=== PATIENT | female | born 1970 | race Caucasian/White ===

== ENCOUNTER → 2020-10-11 08:26 | Outpatient (BNVA) | payer OTHER, SELFPAY | PROVIDERS: PCP Family Medicine; Visit Provider Surgery | DX: Z76.89 Persons encountering health services in other specified circumstances (principal) ==

== ENCOUNTER → 2020-11-21 07:48 | Outpatient (BNVA) | payer OTHER, SELFPAY | PROVIDERS: PCP Family Medicine; Visit Provider Surgery ==

== ENCOUNTER → 2020-12-07 08:26 | Outpatient (BNVA) | payer OTHER, SELFPAY | PROVIDERS: PCP Family Medicine; Visit Provider Surgery ==

== ENCOUNTER → 2020-12-13 08:13 | Outpatient (REF) | payer OTHER, SELFPAY ==
--- NOTE | ~2020-12-13 | FL_ITS ---
EXAMINATION: FL UPPER GI SERIES CLINICAL INFORMATION: Bariatric service evaluation. E66.9 COMPARISON: None TECHNIQUE: Upper GI series is performed using fluoroscopic evaluation in addition to multiple fluoroscopic spot views. The patient is imaged both upright and prone and using both thick and thin barium sulfate along with effervescent granules. Fluoroscopy time: 0.9 minutes DAP: 20.43 Gycm2 Fluoroscopic spot images: 18 FINDINGS: There is normal esophageal motility. There is no obstruction, stricture, or ulceration. There is intermittent small sliding hiatal hernia seen during prior Valsalva maneuver with herniation by approximately 1.25 thoracic vertebral height in size. There is mild gastroesophageal reflux to the midthoracic esophagus during the water siphon test. The stomach shows no thickened folds or ulcer crater or outlet obstruction. The duodenal bulb is pliable and without ulcer crater or scarring. The post bulbar duodenum the jejunal mucosal pattern are unremarkable. FL/FL upper GI series IMPRESSION: 1. Small intermittent sliding hiatal hernia during prone Valsalva maneuver. 2. Gastroesophageal reflux to mid thoracic esophagus during the water siphon test. 3. Otherwise normal study. No ulceration.
--- NOTE | ~2020-12-13 | US_ITS ---
EXAMINATION: XR CHEST US ABDOMEN COMPLETE WITH ELASTOGRAPHY CLINICAL INFORMATION: Obesity. COMPARISON: None TECHNIQUE: Chest 2 views. Routine abdomen ultrasound was performed with elastography of liver. FINDINGS: CHEST: The lungs are well-expanded and clear. The heart size and pulmonary vascularity are normal. No gross bony abnormality seen. ULTRASOUND ABDOMEN: The pancreas is homogeneous in echotexture, normal size and shape. The abdominal aorta is normal course and caliber. Liver: The liver is normal in size, shape with increased echogenicity. The right hepatic lobe measures 19.0 cm in length and left hepatic lobe measures 12.5 cm in length. There is normal hepatopedal flow seen and portal vein on Doppler exam. On elastography, the median stiffness is 1.11. IQR/Median is 0.15. The gallbladder has been removed. The common bile duct measures 0.9 cm. The right kidney measures 12.6 cm. There is normal cortical thickness. No focal lesion, echogenic calculi or hydronephrosis. The left kidney measures 12.5 cm. There is normal cortical thickness. No focal lesion, echogenic calculi or hydronephrosis seen. The spleen measures 9.5 cm and appears unremarkable. US/US abdomen comp w elastography IMPRESSION: Hepatic steatosis without focal lesion. Rest of the abdominal ultrasound is unremarkable. On elastography, the liver stiffness is 1.11 and normal. Unremarkable chest exam.
--- NOTE | 2020-12-13 08:32 | ECG_ITS ---
Test Reason : E66.9 OBESITY Blood Pressure : / mmHG Vent. Rate : 080 BPM Atrial Rate : 080 BPM P-R Int : 174 ms QRS Dur : 080 ms QT Int : 388 ms P-R-T Axes : 062 022 023 degrees QTc Int : 447 ms Normal sinus rhythm Normal ECG No previous ECGs available Referred By: Prakash Horne Electronically Signed By:RYANN SANTANA
[2020-12-13 09:23] LABS: MANUAL DIFF FLAG NO
[2020-12-13 09:30] LABS: Basophils Absolute Auto 0.1 X10*3/uL (0.0-0.2); Basophils Percent Auto 0.9 % (0-2); Eosinophils Absolute Auto 0.1 X10*3/uL (0.0-0.4); Hematocrit 36.5 % (37-47); Hemoglobin 12.9 g/dl (12.0-16.0); Imm Gran Abs Auto 0.02 X10*3/uL (0.00-0.03); Imm Gran Pct Auto 0.4 % (0.0-0.4); Lymphocytes Absolute Auto 1.9 X10*3/uL (1.2-4.9); Lymphocytes Percent Auto 33.5 % (20-40); Mean Corpuscular HGB Conc 35.3 g/dl (31.0-35.0); Mean Corpuscular Hemoglobin 32.6 pg (27.0-33.0); Mean Corpuscular Volume 92.2 fL (80-98); Mean Platelet Volume 9.9 fL (9.4-12.3); Monocytes Absolute Auto 0.5 X10*3/uL (0.1-1.2); Monocytes Percent Auto 9.3 % (2-11); Neutrophils Percent Auto 53.9 % (45-73); Platelet Count 326 X10*3/uL (160-400); Red Blood Count 3.96 X10*6/uL (4.20-5.50); Red Cell Distribution Width 11.7 % (11.0-16.0); White Blood Count 5.6 X10*3/uL (4.8-10.8)
[2020-12-13 09:42] LABS: Estimated Average Glucose 103 mg/dL; Hemoglobin A1c % 5.2 %
[2020-12-13 10:46] LABS: Folate 5.9 ng/mL (> or = 4.0); Vitamin B12 509 pg/mL (200-900)
[2020-12-13 13:16] LABS: Alanine Aminotransferase 30 U/L (0-31); Albumin Level 4.1 g/dL (3.5-5.0); Alkaline Phosphatase 85 U/L (39-117); Anion Gap 16 (12-20); Aspartate Amino Transferase 18 U/L (5-31); Bilirubin Total 0.6 mg/dL (0.0-1.0); Blood Urea Nitrogen 9 mg/dL (9-16); C Reactive Protein 0.68 mg/dL (< or = 0.50); Calcium 8.8 mg/dL (8.4-10.2); Carbon Dioxide 24 mmol/L (22-29); Chloride 103 mmol/L (96-108); Cholesterol 175 mg/dL; Estimated Glomerular Filt Rate > 60; Glucose Random 101 mg/dL (60-115); HDL Cholesterol 48 mg/dL; LDL Cholesterol Calculated 83 mg/dl; Potassium 4.4 mmol/L (3.3-5.1); Sodium 139 mmol/L (135-145); Total Protein 6.7 g/dL (6.5-8.0); Triglycerides 224 mg/dL
[2020-12-13 13:36] LABS: Ferritin 57 ng/mL (10-250); TSH reflex Free T4 1.79 uIU/mL (0.32-4.0); Vitamin D 25-OH Total 11.2 ng/mL (>30)
[2020-12-14 05:32] LABS: Insulin Level Total 10.7 uIU/mL
[2020-12-15 16:32] LABS: Zinc 69 mcg/dL (60-130)
[2020-12-17 04:42] LABS: Vitamin A 40 mcg/dL (38-98)
[2020-12-17 12:11] LABS: Vitamin B1 9 nmol/L (8-30)
[2020-12-17 13:47] LABS: Calcium (PTHI) 8.9 mg/dL (8.6-10.2); PTHI 86 pg/mL (14-64)
== END ==
LOC: HO.SL 08:13
PROVIDERS: Visit Provider Surgery
DX: Z01.818 Encounter for other preprocedural examination (principal); G47.19 Other hypersomnia; E66.01 Morbid (severe) obesity due to excess calories; K21.9 Gastro-esophageal reflux disease without esophagitis; E66.9 Obesity, unspecified; Z68.38 Body mass index [BMI] 38.0-38.9, adult; R06.83 Snoring
CPT/HCPCS: 36415; 71046; 74240; 76705; 76981; 80053; 80061; 82306; 82607; 82728; 82746; 83036; 83525; 83970; 84425; 84443; 84590; 84630; 85025; 86140; 93005; 95806

== ENCOUNTER → 2020-12-14 08:07 | Outpatient (BNVA) | payer OTHER, SELFPAY | PROVIDERS: PCP Family Medicine; Visit Provider Dietitian, Registered | DX: E66.01 Morbid (severe) obesity due to excess calories (principal) ==

== ENCOUNTER → 2020-12-14 08:07 | Outpatient (BNVA) | payer OTHER, SELFPAY | PROVIDERS: PCP Family Medicine; Visit Provider Dietitian, Registered ==

== ENCOUNTER → 2021-01-10 08:11 | Outpatient (BNVA) | payer OTHER, SELFPAY | PROVIDERS: PCP Family Medicine; Visit Provider Dietitian, Registered ==

== ENCOUNTER → 2021-01-11 08:10 | Outpatient (BNVA) | payer OTHER, SELFPAY | PROVIDERS: PCP Family Medicine; Visit Provider Dietitian, Registered | DX: E66.9 Obesity, unspecified (principal) | CPT/HCPCS: 97803 ==

== ENCOUNTER → 2021-01-21 08:12 | Outpatient (BNVA) | payer OTHER, SELFPAY | PROVIDERS: PCP Family Medicine; Visit Provider Surgery ==

== ENCOUNTER → 2021-02-07 08:14 | Outpatient (BNVA) | payer OTHER, SELFPAY | PROVIDERS: PCP Family Medicine; Visit Provider Dietitian, Registered | DX: E66.01 Morbid (severe) obesity due to excess calories (principal); Z68.39 Body mass index [BMI] 39.0-39.9, adult | CPT/HCPCS: 97803 ==

== ENCOUNTER → 2021-02-15 07:21 | Outpatient (BNVA) | payer OTHER, SELFPAY | PROVIDERS: PCP Family Medicine; Visit Provider Surgery ==

== ENCOUNTER → 2021-03-08 07:12 | Outpatient (BNVA) | payer OTHER, SELFPAY | PROVIDERS: Visit Provider Surgery ==

== ENCOUNTER 2021-03-12 08:43 | Day surgery (SDC) | payer OTHER, SELFPAY ==
[2021-03-04 16:18] VITALS: BMI 38.9
--- NOTE | 2021-03-08 08:30 | HO.ANESPROP2 ---
Documented by User: Ivonneher Dominguezney 03/08/21 09:14 HPI - Anesthesia Eval Consult details Narrative: 50yo F for Upper Endoscopy PMFSH Active Problems Active Problems: All Active Problems (Updated 03/04/21 @ 16:24 by Jazz Leiva) Cerebral edema (Acute) Constipation (Acute) BMI 39.0-39.9,adult (Acute) Morbid obesity (Acute) Anxiety (Acute) GERD (gastroesophageal reflux disease) (Acute) Hypersomnolence (Acute) Snoring (Acute) Asthma (Acute) BMI 38.0-38.9,adult (Acute) Obesity (Acute) Past Medical History Medical History Anxiety Arthritis Asthma Back pain BMI 38.0-38.9,adult GERD (gastroesophageal reflux disease) Hypersomnolence Menorrhagia Morbid obesity Obesity Occipital neuralgia Snoring Family History Family History Mother Stroke Hypertension Diabetes Father Diabetes Brother No problems noted. Brother No problems noted. Sister Diabetes Sister No problems noted. Sister No problems noted. Brother Bipolar 1 disorder Son No problems noted. Son No problems noted. Surgical History Surgical History History of carpal tunnel surgery History of esophagogastroduodenoscopy (EGD) History of sleeve gastrectomy Hx of cholecystectomy Hx of tubal ligation Social History Social History Use of substances other than those prescribed or required for medical reasons: No Are you DNR?: No Advance Directives: No Advance Directives Information Provided: No Advance Directives on File: No Patient : No FDLMP: 02/24/2021 Meds Allergies Allergy/AdvReac Type Severity Reaction Status Date / Time No Known Allergies Allergy Verified 03/04/21 16:16 Home Medications Medication Instructions Recorded Confirmed Last Taken Type amitriptyline 20 mg PO DAILY 03/04/21 03/04/21 Unknown History docusate sodium [Colace] 100 mg PO DAILY PRN 03/04/21 03/04/21 Unknown History Exam Exam Date and Time: March 08, 2021 0830 Height,Weight and Vital Signs: Height 5 ft 4 in Weight 102.965 kg Narrative Narrative: EKG 02/2021 Vent. Rate : 080 BPM Atrial Rate : 080 BPM P-R Int : 174 ms QRS Dur : 080 ms QT Int : 388 ms P-R-T Axes : 062 022 023 degrees QTc Int : 447 ms Normal sinus rhythm Normal ECG No previous ECGs available Assessment and Plan Assessment Anesthesia Assessment: Chart Reviewed Documented by User: Tommy Rivers MD 03/12/21 10:51 [facility] Past Medical History Medical History Anxiety Arthritis Asthma Back pain BMI 38.0-38.9,adult GERD (gastroesophageal reflux disease) Hypersomnolence Menorrhagia Morbid obesity Obesity Occipital neuralgia Snoring Family History Family History Mother Stroke Hypertension Diabetes Father Diabetes Brother No problems noted. Brother No problems noted. Sister Diabetes Sister No problems noted. Sister No problems noted. Brother Bipolar 1 disorder Son No problems noted. Son No problems noted. Surgical History Surgical History History of carpal tunnel surgery History of esophagogastroduodenoscopy (EGD) History of sleeve gastrectomy Hx of cholecystectomy Hx of tubal ligation Social History Social History Use of substances other than those prescribed or required for medical reasons: No Are you DNR?: No Advance Directives: No Advance Directives Information Provided: No Advance Directives on File: No Patient : No FDLMP: 02/24/2021 Meds Allergies Allergy/AdvReac Type Severity Reaction Status Date / Time No Known Allergies Allergy Verified 03/04/21 16:16 Home Medications Medication Instructions Recorded Confirmed Last Taken Type amitriptyline 20 mg PO DAILY 03/04/21 03/04/21 Unknown History docusate sodium [Colace] 100 mg PO DAILY PRN 03/04/21 03/04/21 Unknown History Exam Airway Mallampati Class: II TM Dist: >3cm Loose/Missing/Broken Teeth: No Heart: RRR Lungs: NL Assessment and Plan Assessment Anesthesia Assessment: Anesthesia Plan Discussed and Chart Reviewed Final Anesthetic Review NPO: Yes ASA Class: III Final Preanesthetic Review: No Changes in Pt Med Stat, Meds/Allgs Chart Reviewed, Consent Obtained/Reviewed and Anes Risks/Benef Reviewed Patient Risk: High Procedure Risk: Low Anesthetic Plan Anesthetic Plan: MAC: Disposition: Standard PACU
[2021-03-12 09:00] VITALS: BP 149/82; PULSE 83; RESP 16; TEMP 36.1; O2SAT 97
[2021-03-12] MEDS: Lactated Ringers 1,000 ML 100 ML IVCONT (09:10)
--- NOTE | 2021-03-12 10:39 | MHC.SHP ---
Pre-Procedural Eval Section A The patient is an INPATIENT: No The History & Physical has been completed within 30 days and I have reviewed it.: Yes Section B Chief Complaint: reflux disease Details of Present Illness: GERD Relevant Family History (Specify if Yes): No Relevant Social History: None Present Medications: see Short Stay Collaborative assessment Medical History: No relevant PMH History of Previous Operations: Relevant previous surgery/procedure and date(s) (Sleeve gastrectomy) Allergies: Allergies Allergy/AdvReac Type Severity Reaction Status Date / Time No Known Allergies Allergy Verified 03/04/21 16:16 Review of Systems Sugical H&P ROS: Negative: Constitution, Cardiovascular, Respiratory, Neurological, Psychiatric, Hem-Onc, Allergic/Immunologic, Gastrointestinal, Genitourinary, Musculoskeletal, Integumentary, Endocrine and Eyes/Ears/Nose/Throat Exam Surgical H&P Exam: Normal: HEENT, Normal: Heart, Normal: Lungs, Normal: Extremities, Normal: Abdomen, Normal: Skin and Normal: Neurological Plan Diagnosis/Plan: Unchanged (EGD to assess GERD, sleeve anatomy and H. pylori.) I have reviewed the history and physical and performed a pertinent physical examination on my patient. No changes have occurred unless specified.
--- NOTE | 2021-03-12 10:42 | PM.OP ---
Brief Operative Note Date of Service: 03/12/21 Pre-op diagnosis: GERD Post-op diagnosis: same Procedure: PROCEDURE DATE: 03/12/2021 PREOPERATIVE DIAGNOSIS: GERD, s/p sleeve gastrectomy POSTOPERATIVE DIAGNOSIS: Same as above. 1) hiatal hernia, 2) gastritis, 3) esophagitis II, 4) duodenitis, 5) redundant gastric fundus PROCEDURE: [id number] with biopsies Surgeon: Zackary Horne M.D.. Ph.D. Home Help Aide: None Anesthesia: IV sedation Estimated blood loss: Minimal FINDINGS AND PROCEDURE: OPERATIVE INDICATIONS: The patient is a 50 year old female known to me who underwent a laparoscopic sleeve gastrectomy elsewhere. The patient had inadequate weight loss so far. The patient has been complaining of GERD. Based on this information I recommended an upper endoscopy to evaluate the patient's symptoms. Risks and complications of the surgery were discussed with the patient in advance particularly the possibility of perforation or bleeding that may require surgical intervention. The patient understood the risks and was in agreement with the plan. PROCEDURE: After informed consent was obtained by the patient, the patient was transferred to the Operating Room and was placed in the supine position. After successful induction of IV sedation, a mouth block was inserted and the patient was placed in the left lateral decubitus position. An upper endoscopy was performed next, the oropharynx and esophagus appeared within the normal limits. There was a 3cm hiatal hernia. The z-line was irregular with tongues of gastric mucosa protruding into the esophagus in more than 25% but less than 50% circumference. Two biopsies were obtained from the distal esohagus 2-3 cm proximal to the GE junction and two additional biopsies from the GE junction. The sleeve was entered. The gastric fundus was inadequately resected with a lumen diameter more than double than the distal sleeve to a point that the scope could completely retroflex. The distal sleeve had normal caliber but it was signficantly narrowed compared to the gastric fundus. There was gastritis at the antrum. There was no stricture or ulcer. Biopsies were obtained from the proximal sleeve as well as the distal antrum. No significant bleeding was noted from any of the biopsy sites. The scope was then advanced into the duodenum which appeared mildly inflamed. At that point the duodenum and the sleeve were decompressed and the scope was withdrawn from the patient's mouth. The patient extubated and was transferred in stable condition to the Recovery Room for further care. I was present and performed all steps of the procedure. There were no residents to assist with this case. Zackary Horne M.D., Ph.D. Surgeon: Prakash Horne MD Anesthesia: MAC Was an Home Help Aide used for this Procedure?: No Estimated blood loss (mL): 0 IV fluids (mL): 400 Urine output (mL): 0 (No Harrell to record) Pathology: other (1) GEJ x2, distal esophagus x2, 3) proximal sleeve x1, 4) antrum x1) Condition: stable Disposition: PACU
[2021-03-12 11:25] VITALS: BP 128/75; PULSE 76; RESP 16; TEMP 36.8; O2SAT 97
[2021-03-12 11:40] VITALS: BP 144/88; PULSE 74; RESP 16; TEMP 36.8; O2SAT 98
== END 2021-03-12 11:55 | disposition home or self-care (01) ==
PROVIDERS: Visit Provider Surgery
PROC: 0DJ08ZZ Inspection of Upper Intestinal Tract, Via Natural or Artificial Opening Endoscopic (ICD-10-PCS; CPT 43235; principal; 2021-03-12 10:10)
DX: K21.9 Gastro-esophageal reflux disease without esophagitis (principal); K29.50 Unspecified chronic gastritis without bleeding; K29.80 Duodenitis without bleeding; K20.80 Other esophagitis without bleeding; K44.9 Diaphragmatic hernia without obstruction or gangrene; K31.89 Other diseases of stomach and duodenum; Z90.3 Acquired absence of stomach [part of]; Z98.84 Bariatric surgery status; Z90.49 Acquired absence of other specified parts of digestive tract; J45.909 Unspecified asthma, uncomplicated; E66.01 Morbid (severe) obesity due to excess calories; Z68.38 Body mass index [BMI] 38.0-38.9, adult; Z79.899 Other long term (current) drug therapy; Z87.891 Personal history of nicotine dependence
CPT/HCPCS: 43239; 88305; 88342

== ENCOUNTER → 2021-04-17 07:22 | Outpatient (BNVA) | payer OTHER, SELFPAY | PROVIDERS: Visit Provider Surgery ==

== ENCOUNTER → 2021-05-08 07:10 | Outpatient (BNVA) | payer OTHER, SELFPAY | PROVIDERS: Visit Provider Surgery ==

== ENCOUNTER → 2021-06-21 07:10 | Outpatient (BNVA) | payer OTHER, SELFPAY | PROVIDERS: Visit Provider Surgery | DX: E66.9 Obesity, unspecified (principal); Z68.34 Body mass index [BMI] 34.0-34.9, adult | CPT/HCPCS: 97803 ==

== ENCOUNTER → 2021-06-24 08:33 | Outpatient (BNVA) | payer OTHER, SELFPAY | PROVIDERS: Visit Provider Dietitian, Registered ==